=== PATIENT | female | born 1965 | race Asian ===

== ENCOUNTER 2023-09-18 06:11 | Emergency (ER) | payer OTHER, SELFPAY ==
[2023-09-18 06:14] VITALS: BP 114/76
--- NOTE | 2023-09-18 07:30 | ED.GENMED ---
History of Present Illness
General
Chief Complaint: Headache
Source: patient and spouse
Exam Limitations: none
Time Seen by Provider: 09/18/23 06:52
Nursing documentation reviewed up to this point in time: agreed with
Travel History
Have you had any contact with someone who has COVID-19?: No
Do you have any symptoms of coronavirus? Fever > 100 degrees, chills, cough, shortness of breath, sore throat, loss of taste or smell, muscle aches, or headache?: No
History of Present Illness
History of Present Illness:
Patient is a 58-year-old female presents to the emergency department complaint of a posterior headache on the right that became worse over the past 24 to 48 hours. Patient had mild pain there previously but this is more severe. It was not of
sudden onset. Patient denies any visual or speech difficulties. Patient states it feels better if she stretches her head out. Patient denies any decreased hearing or ear pain. Patient denies any malocclusion. Patient does have a somewhat
scratchy throat. Patient denies any nasal congestion. Patient denies any ataxia or focal weakness. Patient denies any GI or symptoms. Patient denies any recent illnesses or injuries.
Past History
Past History
ED Past Medical History: None
ED Past Surgical History: None
Social History
Personal:
Living: with family
Employment: Employed
Review of Systems
Review of Systems
All Other Systems: ROS reviewed and negative except as documented in HPI and ROS
Constitutional: Reports no symptoms
EENT: Reports no symptoms
Respiratory: Reports no symptoms
Cardiac: Reports no symptoms
ABD/GI: Reports no symptoms
: Reports no symptoms
Skin: Reports no symptoms
Neurological: Reports headache; Denies dizzy, weakness or numbness
Hematologic/Lymphatic: Reports no symptoms
Psychiatric: Reports no symptoms
Phy Exam
Physical Exam
Physical Exam:
Physical Exam
General: mild distress, alert and appropriate, well nourished, well hydrated
HENT: Normocephalic with point tenderness just inferior to the right occiput, supple with no lymphadenopathy, no thyromegaly. TMs intact and clear. Nares patent and clear. Oropharynx is clear
Eyes: Clear sclera, conjuctiva without injection, extraocular muscles intact, visual sanchez intact, pupils equal reactive to light
Heart: Regular rhythm and rate. No S3, S4. No murmur. No NVD, bruit
Lungs: No respiratory distress, no stridor, lung sounds clear and equal bilaterally, chest wall symmetrical and nontender
Abdomen: Soft, nontender, no organomegaly, no CVA tenderness, BS good
Neuro: Alert and oriented x 3, CN II - XII intact, no motor focality, no cerebellar dysfunction
Skin: no rash
Psychiatric: well kept. interactive and cooperative
Extremities: No edema, cyanosis, tenderness, Good and equal peripheral pulses.
Scores
Heart Failure Risk
Heart Failure Risk Score: Not Applicable
Heart Score for Chest Pain Patients
STEMI patient?: Not applicable
Withdrawal Assessment of Alcohol
Withdrawal Assessment Completed?: Not applicable
Course
Orders/Labs/Results
Orders:
Orders
09/18/23 07:20
CT Head W/o Iv Contrast Urgent
Comment:
Reason For Exam: new oonset posterior headache
Gabapentin [Neurontin] 200 mg PO NOW STA
Ketorolac [Toradol] 15 mg IV NOW STA
09/18/23 07:21
Complete Blood Count/With Diff Urgent
Comprehensive Metabolic Panel Urgent
Sed Rate [Erythrocyte Sed Rate] Urgent
Vital Signs
Initial and Last Documented VS:
Initial Vital Signs
Temp Pulse Resp BP Pulse Ox
98.2 F 71 16 114/76 99
09/18/23 06:14 09/18/23 06:14 09/18/23 06:14 09/18/23 06:14 09/18/23 06:14
Last Documented Vital Signs
Temp Pulse Resp BP Pulse Ox
98.2 F 71 16 114/76 99
09/18/23 06:14 09/18/23 06:14 09/18/23 06:14 09/18/23 06:14 09/18/23 06:14
*Radiology
Radiology exam reviewed: radiology read reviewed (CT unremarkable)
*Pulse Oximetry
Patient hypoxic: no
*EKG
Interpreted by ED Provider?: NA
*Research Associate Quality Control Qc Interpretation
Rate: Research Associate Quality Control Qc- N/A
*Critical Care Note
Total Time (30-74mins, 75-104mins- exclusive of procedures): Not Applicable
Update Note
Update Note:
Patient declined lab work or medication at this time. Believe the patient either has cervical spasm or possible occipital neuralgia. Will treat the patient with Keralac and gabapentin.
ED Attending Note
-
Portions of this chart may have been created with voice recognition software.� Occasional wrong word or��sound alike� substitutions may have occurred due to the inherent limitations of voice recognition software.
Discharge Plan
Departure
Patient Disposition: Home (Routine Discharge)
Date of Disposition: 09/18/23
Time of Disposition: 08:34
Patient with high blood pressure during this ER visit?: No
Condition: Good
Covid-19: Not Applicable
Discharge Problem:
Acute headache, Occipital neuralgia of right side
Instructions: Neuropathic pain, Headache, Adult (DC)
Prescriptions:
New
ketorolac 10 mg tablet
10 mg PO QID PRN (Reason: pain) Qty: 20 0RF
gabapentin 100 mg capsule
100 mg PO TID PRN (Reason: headache) Qty: 20 0RF
No Action
cephalexin 500 MG capsule
500 mg PO BID
oxycodone-acetaminophen 5 MG/325 MG tablet
1 tab PO Q4HPRN PRN (Reason: pain) Qty: 20 0RF
polyethylene glycol 3350 255 GM powder
17 gm PO DAILY Qty: 1 0RF
inulin [Metamucil Clear-Natural (inul)] 197.2 GM powder
197.2 gm PO BID Qty: 1 0RF
Rx Instructions:
Take 1 tablespoon twice a day of the sugar-free Metamucil brand
ibuprofen 600 mg tablet
600 mg PO Q6H Qty: 20 0RF
diazepam [Valium] 2 mg tablet
2 mg PO TID PRN (Reason: muscle spasm) Qty: 15 0RF
hydrocodone-acetaminophen 5-325 mg tablet
1 tab PO Q8H PRN (Reason: Pain) Qty: 8 0RF
Referrals:
Blake Allan MD [Family Provider] -
Interventions
Interventions:
*General Assessment Last Done: 09/18/23 06:14
*ED COVID-19 Vaccine History Last Done: 09/18/23 06:14
Discharge Date and Time
Print Language: URDU
[2023-09-18] MEDS: NEURONTIN 200 MG PO (08:26)
[2023-09-18 08:44] VITALS: BP 121/75
== END 2023-09-18 08:55 | disposition home or self-care (01) ==
LOC: EMR 06:11
PROVIDERS: EMERGENCY PHYSICIAN Emergency Medicine; FAMILY PHYSICIAN Internal Medicine
DX: R51.9 Headache, unspecified (principal); M54.81 Occipital neuralgia
CPT/HCPCS: 99284; 70450

== ENCOUNTER → 2023-10-28 14:56 | Outpatient (REF) | payer OTHER, SELFPAY | LOC: WDC 14:56 | PROVIDERS: ATTENDING PHYSICIAN Internal Medicine | DX: R92.2 Inconclusive mammogram (principal) | CPT/HCPCS: 76641 ==

== ENCOUNTER → 2024-01-02 07:52 | Outpatient (REF) | payer OTHER, SELFPAY | LOC: HWRAD 07:52 | PROVIDERS: ATTENDING PHYSICIAN Internal Medicine | DX: R10.11 Right upper quadrant pain (principal) | CPT/HCPCS: 76700 ==

== ENCOUNTER → 2024-02-01 16:27 | Outpatient (REF) | payer OTHER, SELFPAY | LOC: WDC 16:27 | PROVIDERS: ATTENDING PHYSICIAN Obstetrics & Gynecology; FAMILY PHYSICIAN Internal Medicine | DX: Z12.31 Encounter for screening mammogram for malignant neoplasm of breast (principal) | CPT/HCPCS: 77063; 77067 ==

== ENCOUNTER → 2024-05-10 14:48 | Outpatient (REF) | payer OTHER, SELFPAY | LOC: WDC 14:48 | PROVIDERS: ATTENDING PHYSICIAN Internal Medicine | DX: R92.8 Other abnormal and inconclusive findings on diagnostic imaging of breast (principal) | CPT/HCPCS: 76642 ==

== ENCOUNTER → 2025-02-21 14:55 | Outpatient (REF) | payer BC, SELFPAY | LOC: WDC 14:55 | PROVIDERS: ATTENDING PHYSICIAN Internal Medicine | DX: R92.8 Other abnormal and inconclusive findings on diagnostic imaging of breast (principal); Z12.31 Encounter for screening mammogram for malignant neoplasm of breast | CPT/HCPCS: 76642; 77063; 77067 ==